=== PATIENT | female | born 1975 | race Caucasian/White ===

== ENCOUNTER → 2020-06-03 | Outpatient (CLI) | payer BC | END | disposition home or self-care (01) | LOC: RAH 07:29 | PROVIDERS: ATTEND Internal Medicine Cardiovascular Disease | DX: R10.9 Unspecified abdominal pain (principal) | CPT/HCPCS: 76705 ==

== ENCOUNTER → 2021-02-04 | Outpatient (CLI) | payer BC, SELFPAY | END | disposition home or self-care (01) | LOC: RAH 09:58 | PROVIDERS: ATTEND Internal Medicine Cardiovascular Disease | DX: M50.222 Other cervical disc displacement at C5-C6 level (principal); M62.838 Other muscle spasm | CPT/HCPCS: 72141 ==

== ENCOUNTER 2024-04-20 11:11 | Day surgery (SDC) | payer BC ==
[~2024-04-20] VITALS: Ht 167.6 cm; Wt 59.0 kg
[2024-04-20] VITALS (12 sets, daily range): BP systolic 101–112; BP diastolic 64–72; PULSE 60–80; RESP 16; TEMP 97.6–99.7
[~2024-04-20 11:11] MED LIST: LACT1CAP81 PO; MULT-1367 PO
[2024-04-20] MEDS: 0.9%NACL 1000ML 1,000 ML IV ONE (12:00)
[2024-04-20] MEDS ORDERED: LIDOCAINE PF 100MG/5ML (2%) SYRINGE 5ML ONE (12:24)
[2024-04-20] MEDS ORDERED: proPOFol 10 MG/ML 20ML VIAL IV ONE (12:24)
[2024-04-20] MEDS: FAMOTIDINE 20MG VIAL IV ONE (14:05)
== END 2024-04-20 14:20 | disposition home or self-care (01) ==
LOC: DAH 11:11 → ENDO 11:11
PROVIDERS: ATTEND Internal Medicine
DX: R10.31 Right lower quadrant pain (principal); K63.3 Ulcer of intestine; K31.89 Other diseases of stomach and duodenum; K29.50 Unspecified chronic gastritis without bleeding; K62.89 Other specified diseases of anus and rectum; R14.0 Abdominal distension (gaseous); R19.4 Change in bowel habit; K21.9 Gastro-esophageal reflux disease without esophagitis; Z79.899 Other long term (current) drug therapy
CPT/HCPCS: 45380; 43239; J3490; J7030; J2001; J2704; A4620; A4215 ×2; A4223; A4657; A4222; A4221; A4663; A4606